=== PATIENT | female | born 1985 | race Caucasian/White ===

== ENCOUNTER 2023-05-30 13:29 | Emergency (ER) | payer BC, SELFPAY ==
[2023-05-30 13:34] VITALS: BP 155/92; PULSE 71; RESP 18; TEMP 36.6; O2SAT 97; BMI 27.4
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
[2023-05-30] MEDS: TETANUS/DIPHTH/PERTUSSIS 0.5 ML SYRINGE IM (14:18)
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
== END 2023-05-30 15:36 | disposition home or self-care (01) ==
PROVIDERS: Emergency Provider Student in an Organized Health Care Education/Training Program
DX: S01.112A Laceration without foreign body of left eyelid and periocular area, initial encounter (principal); Y04.2XXA Assault by strike against or bumped into by another person, initial encounter
CPT/HCPCS: 12011; 70450; 70486; 90471; 90715; 99283